=== PATIENT | female | born 1980 | race Asian ===

== ENCOUNTER 2016-09-15 07:25 | Inpatient (IN) | payer OTHER ==
[2016-09-15] MEDS ORDERED: ELECTROLYTE-148 SOLN 1,000 ML IV SCH ×4 (08:30→19:15)
[2016-09-15] MEDS ORDERED: AZITHROMYCIN 250 MG TABLET (FP) PO ONE (09:45)
[2016-09-15 11:02] LABS: BASOPHIL 0.3 % (0-2.0); MCH 28.7 pg (25.7-33.7); MEAN CELL VOLUME 87.2 fl (80-96); MEAN PLT VOLUME 7.5 fl (7.5-11.1); NEUTROPHILS 81.8 % (42.8-82.8); PLATELET COUNT 287 K/MM3 (134-434); RDW 13.6 % (11.6-15.6); WHITE BLOOD COUNT 10.1 K/mm3 (4.0-10.0)
[2016-09-15 11:17] LABS: INR 1.06 (0.82-1.09); PROTHROMBIN TIME (PATIENT) 11.7 SEC (9.98-11.88)
[2016-09-15 11:20] LABS: ACTIVATED PTT 33.4 SECONDS (26.9-34.4)
[2016-09-15 11:33] LABS: ALBUMIN 2.5 g/dl (3.4-5.0); ANION GAP 10 (8-16); BILIRUBIN,TOTAL 0.4 mg/dL (0.2-1.0); CALCIUM 8.4 mg/dL (8.5-10.1); CO2 23 mmol/L (21-32); CREATININE 0.6 mg/dL (0.55-1.02); GLUCOSE,RANDOM 91 mg/dL (74-106); SGOT/AST 29 U/L (15-37); SGPT/ALT 28 U/L (12-78); TOT PROT 6.3 g/dl (6.4-8.2)
[2016-09-15 11:34] LABS: ALK PHOS 157 U/L (45-117)
[2016-09-15] MEDS ORDERED: ELECTROLYTE-148 SOLN 500 ML IV ONE (12:30)
[2016-09-15] MEDS ORDERED: CITRIC ACID/SODIUM CITRATE 30 ML UNIT-DOSE CUP PO ONE (12:30)
[2016-09-15 13:23] VITALS: BMI 29.9
[2016-09-15 16:09] LABS: URINE APPEARANCE CLEAR; URINE BILIRUBIN NEGATIVE (NEGATIVE); URINE COLOR LTYELLOW; URINE GLUCOSE (UA) NEGATIVE (NEGATIVE); URINE KETONE 1+ (NEGATIVE); URINE NITRITE NEGATIVE (NEGATIVE); URINE UROBILINOGEN NEGATIVE E.U./dl (0.2-1.0)
[2016-09-15 16:14] LABS: URINE BLOOD 3+ (NEGATIVE); URINE LEUK ESTERASE TRACE (NEGATIVE); URINE PROTEIN 1+ (NEGATIVE)
[2016-09-15 16:52] LABS: URINE RBC 45 /hpf (0-3); URINE WBC 18 /hpf (3-5)
[2016-09-15] MEDS ORDERED: METOCLOPRAMIDE HCL INJECTION 10 MG/2 ML VIAL IVPB ONE (17:13)
--- NOTE | 2016-09-15 19:17 | HP ---
Past Medical History - Admission Chief Complaint: Vaginal bleeding History of Present Illness: 36 yo @ 38 weeks gestation with prior is Pre op for repeat C- Section. She was scheduled for 09/19/16 but due to vaginal bleeding, decision made for early section. History Source: Patient Limitations to Obtaining History: No Limitations - Past Medical History ...: 2 ...Para: 1 ...Term: 1 ...: 0 ...Spon : 0 ...Induced : 0 ...Multiple Gestation: 0 ...LMP: 12/16/15 ... Weeks Gestation by Dates: 38.6 ...EDC by Dates: 09/23/16 ...EDC by Sono: 09/26/16 - Past Surgical History Past Surgical History: Yes: Hx Myomectomy: No Hx Transabdominal Cerclage: No - Smoking History Smoking history: Never smoked Have you smoked in the past 12 months: No - Alcohol/Substance Use Hx Alcohol Use: No History of Substance Use: reports: None - Social History Usual Living Arrangement: Yes: With Spouse History of Recent Travel: No Home Medications - Allergies Allergies/Adverse Reactions: Allergies Allergy/AdvReac Type Severity Reaction Status Date / Time No Known Allergies Allergy Verified 09/15/16 07:55 - Home Medications Home Medications: Ambulatory Orders Vit/Iron Fumarate/FA [ Tablet] 1 tab PO DAILY 09/08/16 Labetalol HCl [Normodyne -] 150 mg PO BID 09/15/16 Family Disease History - Family Disease History Family History: Unremarkable Review of Systems - Review of Systems Constitutional: reports: No Symptoms Eyes: reports: No Symptoms Neck: reports: No Symptoms Cardiovascular: reports: No Symptoms Respiratory: reports: No Symptoms Gastrointestinal: reports: No Symptoms Genitourinary: reports: Vaginal Bleeding Breasts: reports: No Symptoms Reported Musculoskeletal: reports: No Symptoms Integumentary: reports: No Symptoms Neurological: reports: No Symptoms Endocrine: reports: No Symptoms Psychiatric: reports: No Symptoms Pain Intensity: 2 Physical Exam - Maternity Vital Signs: Vital Signs Temperature 98.4 F 09/15/16 18:00 Pulse Rate 86 09/15/16 18:00 Respiratory Rate 20 09/15/16 18:00 Blood Pressure 148/84 09/15/16 18:00 O2 Sat by Pulse Oximetry (%) Constitutional: Yes: Well Nourished Eyes: Yes: Conjunctiva Clear HENT: Yes: Atraumatic Neck: Yes: Supple, Trachea Midline Cardiovascular: Yes: Regular Rate and Rhythm Lungs: Clear to auscultation - Abdominal Exam/OB Number of Fetuses: Single Presentation: Vertex Contractions: Yes - Vaginal Exam/OB Speculum Exam: Yes (+ bleeding) Dilatation (cm): 1 Effacement (%): 60 Amniotic Membrane Status: Intact Presentation: Vertex/Position Station: -3 - Physical Exam Musculoskeletal: Yes: WNL Extremities: Yes: WNL Integumentary: Yes: WNL ...Motor Strength: WNL Psychiatric: Yes: Alert, Oriented - Labs Lab Results: CBC, BMP 09/15/16 10:30 09/15/16 10:30 Problem List - Problems (1) Previous section complicating , antepartum condition or complication Code(s): O34.21 - MATERNAL CARE FOR SCAR FROM PREVIOUS * DO NOT USE * Assessment/Plan Previous associated with vaginal bleeding. Pre op for repeat Consent signed Anesthesia to see patient
[2016-09-15] MEDS ORDERED: morphine SULFATE/Preservative Free 0.5 MG/ML (1cc Syringe) SPIN ONE (19:28)
[2016-09-15] MEDS ORDERED: ONDANSETRON 4 MG/2 ML VIAL IVPB PRN (20:43)
[2016-09-15] MEDS ORDERED: IBUPROFEN 600 MG TABLET (FP) PO PRN ×2 (20:43→20:54)
[2016-09-15] MEDS ORDERED: METHYLERGONOVINE MALEATE 0.2 MG/1 ML AMP IM PRN (20:54)
[2016-09-15 20:57] LABS: ARTERIAL BLD GAS O2 SATURATION 58.5 % (90-98.9); ARTERIAL BLOOD GAS BASE EXCESS -1.4 meq/l (-2-2); ARTERIAL BLOOD GAS HCO3 23.4 meq/L (22-26); ARTERIAL BLOOD GAS PO2 27.3 mmHg (80-100); LPM/O2% 21; PT. ON O2? NO
[2016-09-15 20:58] LABS: ARTERIAL BLOOD GAS pH 7.36 (7.35-7.45)
--- NOTE | 2016-09-15 20:58 | OP ---
[id number] with vaginal bleeding Operation: Repeat Low Transverse Findings: Uterus adherent to anterior abdominal wall. Baby boy in LOT position Surgeon: Love Plunkett Comb Setter: David Castano Anesthesia: Spinal Specimens Removed: Placenta Estimated Blood Loss (mls): 1,200 Operative Report Dictated: Yes
--- NOTE | 2016-09-15 20:58 | PN ---
[id number] [id number] Episiotomy/Laceration: None EBL (cc): 1,200 Delivery, Single - Stages of Labor Date of Delivery: 09/15/16 Time of Delivery: 19:48 Time Placenta Delivered: 19:49 - Condition of Broadcast Technician/Ux Manager Present: Yes Name: Grace Gaitan Infant Gender: Male Weight: 6 lb 13 oz Position: Right, OA Total Hours ROM (Hrs/Mins): 2 min - 1 Minute Total Score: 9 5 Minutes Total Score: 9 - Feeding Plan Initial Plan: Exclusive throughout hospitalization
[2016-09-15 21:13] LABS: BASOPHIL 0.6 % (0-2.0); MCH 27.4 pg (25.7-33.7); MCHC 31.5 g/dl (32.0-36.0); MEAN CELL VOLUME 87.2 fl (80-96); NEUTROPHILS 82.9 % (42.8-82.8); PLATELET COUNT 352 K/MM3 (134-434); RDW 13.4 % (11.6-15.6); WHITE BLOOD COUNT 10.2 K/mm3 (4.0-10.0)
[2016-09-15] MEDS: D5W-LR W/ 20 UNITS OXYTOCIN 1,000 ML IV SCH (22:19)
[2016-09-16] MEDS: ACETAMINOPHEN 325 MG TABLET (FP) PO PRN ×2 (06:04→12:07)
--- NOTE | 2016-09-16 08:20 | PN ---
Progress Note (short form) - Note Progress Note: POD #1 - s/p repeat under spinal anesthesia with duramorph. Pt. doing well, resting comfortably in bed. No complaints. Good pain control. No apparent anesthetic complications noted. Continue current care.
[2016-09-16 08:24] LABS: BASOPHIL 0.2 % (0-2.0); EOSINOPHIL 0.1 % (0-4.5); MCH 28.6 pg (25.7-33.7); MCHC 32.5 g/dl (32.0-36.0); MEAN CELL VOLUME 87.9 fl (80-96); MEAN PLT VOLUME 7.5 fl (7.5-11.1); NEUTROPHILS 81.7 % (42.8-82.8); PLATELET COUNT 406 K/MM3 (134-434); RDW 13.5 % (11.6-15.6); WHITE BLOOD COUNT 11.7 K/mm3 (4.0-10.0)
--- NOTE | 2016-09-16 09:16 | PN ---
[id number] evaluated. Doing well. Post Day: 1 Type of Delivery: Repeat C/S Vital Signs: Vital Signs Temperature 97.9 F 09/16/16 06:00 Pulse Rate 101 H 09/16/16 06:00 Respiratory Rate 18 09/16/16 06:00 Blood Pressure 133/89 09/16/16 06:00 O2 Sat by Pulse Oximetry (%) 98 09/15/16 23:00 Breast Exam: Yes: Soft Uterus: Yes: Fundus Firm Incision: Yes: Dressing dry and intact Abdomen/GI: Yes: Abdomen soft, Tolerating PO Lochia: Yes: Rubra Lochia, amount: Small Extremities: Yes: Calves non-tender Activity: Ambulating - Labs Labs: CBC WBC 11.7 K/mm3 (4.0-10.0) H 09/16/16 07:00 RBC 2.51 M/mm3 (3.60-5.2) L 09/16/16 07:00 Hgb 7.2 GM/dL (10.7-15.3) L 09/16/16 07:00 Hct 22.1 % (32.4-45.2) L 09/16/16 07:00 MCV 87.9 fl (80-96) 09/16/16 07:00 MCHC 32.5 g/dl (32.0-36.0) 09/16/16 07:00 RDW 13.5 % (11.6-15.6) 09/16/16 07:00 Plt Count 406 K/MM3 (134-434) 09/16/16 07:00 MPV 7.5 fl (7.5-11.1) 09/16/16 07:00 Neutrophils % 81.7 % (42.8-82.8) 09/16/16 07:00 Lymphocytes % 12.0 % (8-40) D 09/16/16 07:00 Monocytes % 6.0 % (3.8-10.2) 09/16/16 07:00 Eosinophils % 0.1 % (0-4.5) D 09/16/16 07:00 Basophils % 0.2 % (0-2.0) 09/16/16 07:00 Problem List - Problems (1) Previous section complicating , antepartum condition or complication Code(s): O34.21 - MATERNAL CARE FOR SCAR FROM PREVIOUS * DO NOT USE * (2) Status post repeat low transverse section Code(s): Z98.89 - OTHER SPECIFIED POSTPROCEDURAL STATES * DO NOT USE * Assessment/Plan Status post repeat Stable Continue Post op care
[2016-09-16] MEDS: SIMETHICONE 80 MG TAB.CHEW (FP) PO PRN (12:06)
[2016-09-16] MEDS: D5W-LR W/ 20 UNITS OXYTOCIN 1,000 ML IV SCH (13:06)
[2016-09-16 18:11] LABS: BASOPHIL 0.2 % (0-2.0); EOSINOPHIL 0.3 % (0-4.5); MCH 27.3 pg (25.7-33.7); MCHC 31.2 g/dl (32.0-36.0); MEAN CELL VOLUME 87.4 fl (80-96); MEAN PLT VOLUME 6.7 fl (7.5-11.1); NEUTROPHILS 84.3 % (42.8-82.8); PLATELET COUNT 413 K/MM3 (134-434); RDW 13.7 % (11.6-15.6); WHITE BLOOD COUNT 11.8 K/mm3 (4.0-10.0)
[2016-09-16] MEDS ORDERED: BISACODYL 10 MG SUPP.RECT RC PRN (20:54)
[2016-09-16] MEDS: oxyCODONE HCL 5 MG TABLET PO PRN (21:09)
[2016-09-17] MEDS ORDERED: LABETALOL HCL 200 MG TABLET (FP) ONE ×2 (01:07→07:56)
[2016-09-17] MEDS ORDERED: LABETALOL HCL 200 MG TABLET (FP) PO ONE (01:15)
[2016-09-17] MEDS: ACETAMINOPHEN 325 MG TABLET (FP) PO PRN (02:27)
[2016-09-17] MEDS ORDERED: MEPERIDINE HCL CARPU-JECT 50 MG/1 ML DISP.SYRIN ONE (03:34)
[2016-09-17] MEDS ORDERED: ONDANSETRON 4 MG/2 ML VIAL IVPB PRN (03:48)
[2016-09-17] MEDS: MEPERIDINE HCL CARPU-JECT 50 MG/1 ML DISP.SYRIN IM PRN ×2 (03:53→10:48)
--- NOTE | 2016-09-17 07:46 | HOSP ---
Subjective - Review of Symptoms Events since last encounter: Called to see patient as she has N/V , and bleeding from her CS wound. her dressing was changed 3 times yesterday ( last at 11:30 PM ), and it was saturated. Hb was 6.4 last evening and she received 1 unit of RBC. Saw pt : has no abd apin but feels uncomfortable and bloated. vomiting. no MCCAIN or visual changes. no CP or SOB. she reports not receiving any BP meds since delivery on . no vaginal bleeding, but bled from her wound On exam: BP 173/104. HR 80. AAOx3. CV: RRR, no MRG Lungs : bibasilar crackles . No wheezes. Ext : trace ankle edema . Abd:soft, ND, slight TTP around wound, NL BS . dressing removed, intact wound with steristrips. dressing is saturated with blood . Jiménez in . no blood from vagina Neuro : round equal pupils , EOMI, no facial droop, symmetric face, tongue at mid line. nl sensatio tolight touch , strength 5/5 inupper and lower ext prox and distally. Knee jerka nd Biceps reflexes 2+ b/l . A/P : 36 y/o lady with h/o Gestational HTN s/p C section 09/15 . Now vomiting , bleeding and hypertensive. Nausea and vomiting could be due to pain med, and anesthesia ., we should be careful in the setting of hTN ,not taking BP meds since delivery an has a h/o gestational HTN. Eclamsia is low in DDx as pt has no MCCAIN , no abd apin, no visual changes and NL Neuro exam. she has some protein in her urine on admission though. bleeding has slowed down over night . - give 150 mg of labetalol now then BID - stat CBC , transfuse if needed - decrease IVF to 75 as she has basilar crackles and will probably receive Blood - Spoke to Dr. Plunkett, regarding obtaining US and further REcs. She will resume care and have PROFESSOR OF ECONOMICS evaluate patient instead and Order US if deemed necessary . -Rest of care per PROFESSOR OF ECONOMICS Physical Examination Vital Signs: Vital Signs Temperature 97.7 F 09/17/16 06:00 Pulse Rate 89 09/17/16 06:00 Respiratory Rate 20 09/17/16 06:00 Blood Pressure 149/93 09/17/16 06:00 O2 Sat by Pulse Oximetry (%) 98 09/15/16 23:00 Labs: CBC, BMP 09/15/16 10:30
[2016-09-17] MEDS: LABETALOL HCL 200 MG TABLET (FP) PO STA ×2 (08:00→14:10)
[2016-09-17] MEDS: LABETALOL HCL 200 MG TABLET (FP) PO SCH ×3 (08:00→10:54)
[2016-09-17 08:07] LABS: BASOPHIL 0.3 % (0-2.0); EOSINOPHIL 0.2 % (0-4.5); MCH 27.9 pg (25.7-33.7); MCHC 33.6 g/dl (32.0-36.0); MEAN PLT VOLUME 7.3 fl (7.5-11.1); NEUTROPHILS 85.4 % (42.8-82.8); PLATELET COUNT 401 K/MM3 (134-434); RDW 17.5 % (11.6-15.6); WHITE BLOOD COUNT 12.6 K/mm3 (4.0-10.0)
[2016-09-17] MEDS ORDERED: LABETALOL HCL 100 MG TABLET (FP) PO SCH ×2 (10:00)
--- NOTE | 2016-09-17 10:19 | PN ---
Progress Note (SOAP) - Subjective Chief Complaint: Pt feeling better mostly gas pain small amount of blood in abdomen per tech awaiting official report pt on 2nd transfusion Called yesterday due to bleeding of incision Blood count low started transfusion dressing changed 3 times pt seen this morning at 9 am at bedside - Current Medications Current Medications: Active Medications Acetaminophen (Tylenol -) 650 mg PO Q4H PRN PRN Reason: FEVER OR PAIN Last Admin: 09/17/16 02:27 Dose: 650 mg Bisacodyl (Dulcolax Suppository -) 10 mg RC PRN PRN PRN Reason: CONSTIPATION Diphenhydramine HCl (Benadryl Injection -) 25 mg IVPUSH Q4H PRN PRN Reason: Pruritis Last Admin: 09/16/16 02:29 Dose: 25 mg Diphtheria/Tetanus/Acell Pertussis (Boostrix -) 0.5 ml IM .ONCE ONE Stop: 09/18/16 10:01 Parenteral Electrolytes (Plasma-Lyte 148 -) 1,000 mls @ 125 mls/hr IV ASDIR [facility] Last Admin: 09/15/16 13:00 Dose: 125 mls/hr Dextrose/Lactated Ringer's (Pitocin 20 Units In D5-Lr -) 1,000 mls @ 125 mls/ hr IV ASDIR [facility] Last Admin: 09/16/16 13:06 Dose: 125 mls/hr Ibuprofen (Motrin -) 600 mg PO Q4H PRN PRN Reason: PAIN Last Admin: 09/16/16 12:06 Dose: 600 mg Influenza Virus Vaccine Quadrival (Flucelvax Quadrivalent) 60 mcg IM .ONCE ONE Stop: 09/18/16 10:01 Labetalol HCl (Normodyne -) 150 mg PO BID [facility] Meperidine HCl (Demerol Injection -) 50 mg IM Q3H PRN PRN Reason: PAIN Last Admin: 09/17/16 03:53 Dose: 50 mg Methylergonovine Maleate (Methergine Injection -) 0.2 mg IM Q4H PRN PRN Reason: Excessive Bleeding (L&D) Ondansetron HCl (Zofran Injection) 4 mg IVPB Q8H PRN PRN Reason: NAUSEA AND/OR VOMITING Oxycodone HCl (Roxicodone -) 5 mg PO Q4H PRN PRN Reason: PAIN LEVEL 1-5 Last Admin: 09/16/16 21:09 Dose: 5 mg Simethicone (Mylicon -) 80 mg PO Q4H PRN PRN Reason: GAS Last Admin: 09/16/16 12:06 Dose: 80 mg - Objective Vital Signs: Vital Signs Temperature 97.7 F 09/17/16 06:00 Pulse Rate 89 09/17/16 06:00 Respiratory Rate 20 09/17/16 06:00 Blood Pressure 149/93 09/17/16 06:00 O2 Sat by Pulse Oximetry (%) 98 09/15/16 23:00 Constitutional: Yes: Well Nourished, No Distress Gastrointestinal: Yes: Abdomen, Obese, Distention ....Post : Yes: Uterus firm, Uterus non-tender Breast(s): Yes: WNL Musculoskeletal: Yes: WNL Extremities: Yes: WNL Peripheral Pulses WNL: Yes Edema: No Wound/Incision: Yes: Clean/Dry, Well Approximated Neurological: Yes: WNL, Alert, Oriented Labs Lab Results: CBC, BMP 09/17/16 06:15 09/15/16 10:30 Problem List - Problems (1) hemorrhage, delayed (> 24 hrs), delivered w cond Code(s): O72.2 - DELAYED AND SECONDARY HEMORRHAGE Assessment/Plan ass hemorrhage POD1 gas pain usg shows blood in abdomen levated BP Hx repeat CS Plan renal consult transfusion x 3 units preeclampic labs labetelol 200mg stat repeat cbc after 2nd observe blood count awiating call from radiology for official report
[2016-09-17] MEDS: SIMETHICONE 80 MG TAB.CHEW (FP) PO PRN (10:42)
[2016-09-17 11:52] LABS: URIC ACID 3.8 mg/dL (2.6-7.2)
[2016-09-17] MEDS ORDERED: NIFEdipine E.R. 30 MG TABLET (FP) PO ONE (12:15)
--- NOTE | 2016-09-17 12:59 | PN ---
Progress Note (short form) - Note Progress Note: Preeclamptic labs negative pt given stat of procardia by renal Problem List - Problems (1) hemorrhage, delayed (> 24 hrs), delivered w cond Code(s): O72.2 - DELAYED AND SECONDARY HEMORRHAGE
--- NOTE | 2016-09-17 14:45 | CONSULT ---
Consult - text type - Consultation Consultation Note: Renal Consult for Hypertension This is a 36 year old woman with PMhx of Hypertension who presented at 38 weeks gestation for repeat complicated by hemorrage and hypertension. Vital Signs Temperature 97.8 F 09/17/16 13:35 Pulse Rate 87 09/17/16 13:35 Respiratory Rate 22 09/17/16 13:35 Blood Pressure 161/105 09/17/16 13:35 O2 Sat by Pulse Oximetry (%) 98 09/15/16 23:00 Intake & Output 09/14/16 09/15/16 09/16/16 09/17/16 23:59 23:59 23:59 23:59 Intake Total 3000 4245 1525 Output Total 700 1400 800 Balance 2300 2845 725 Weight 148 lb Gen: NAD CVS: RRR Lungs: CTA Abd: soft NT/ND Ext: trace edema CBC, BMP 09/17/16 06:15 09/15/16 10:30 Current Medications Acetaminophen (Tylenol -) 650 mg PO Q4H PRN PRN Reason: FEVER OR PAIN Last Admin: 09/17/16 02:27 Dose: 650 mg Bisacodyl (Dulcolax Suppository -) 10 mg RC PRN PRN PRN Reason: CONSTIPATION Diphenhydramine HCl (Benadryl Injection -) 25 mg IVPUSH Q4H PRN PRN Reason: Pruritis Last Admin: 09/16/16 02:29 Dose: 25 mg Diphtheria/Tetanus/Acell Pertussis (Boostrix -) 0.5 ml IM .ONCE ONE Stop: 09/18/16 10:01 Parenteral Electrolytes (Plasma-Lyte 148 -) 1,000 mls @ 125 mls/hr IV ASDIR [facility] Last Admin: 09/15/16 13:00 Dose: 125 mls/hr Influenza Virus Vaccine Quadrival (Flucelvax Quadrivalent) 60 mcg IM .ONCE ONE Stop: 09/18/16 10:01 Labetalol HCl (Normodyne -) 400 mg PO Q6H PRN PRN Reason: HYPERTENSION Meperidine HCl (Demerol Injection -) 50 mg IM Q3H PRN PRN Reason: PAIN Last Admin: 09/17/16 10:48 Dose: 50 mg Methylergonovine Maleate (Methergine Injection -) 0.2 mg IM Q4H PRN PRN Reason: Excessive Bleeding (L&D) Ondansetron HCl (Zofran Injection) 4 mg IVPB Q8H PRN PRN Reason: NAUSEA AND/OR VOMITING Last Admin: 09/17/16 11:37 Dose: 4 mg Oxycodone HCl (Roxicodone -) 5 mg PO Q4H PRN PRN Reason: PAIN LEVEL 1-5 Last Admin: 09/16/16 21:09 Dose: 5 mg Simethicone (Mylicon -) 80 mg PO Q4H PRN PRN Reason: GAS Last Admin: 09/17/16 10:42 Dose: 80 mg A/P 36 year old woman with PMhx of Hypertension who presented at 38 weeks gestation for repeat complicated by hemorrage and hypertension. # Hypertension secondary to Pree-clampisa or underlying hypertension made worse by fluids/Pain Check UA, UPCR NO evidence of HELLP syndrome S/p Porocardia 30mg x 1 start Labetalol 400mg Q6h PRN For SBP > 140 or DBP > 90 avoid nsaids stop fluid infusions if not needed pain control f/u CXR Thank you will follow
[2016-09-17 16:25] LABS: URINE APPEARANCE CLEAR; URINE BILIRUBIN NEGATIVE (NEGATIVE); URINE COLOR YELLOW; URINE GLUCOSE (UA) NEGATIVE (NEGATIVE); URINE KETONE TRACE (NEGATIVE); URINE LEUK ESTERASE NEGATIVE (NEGATIVE); URINE NITRITE NEGATIVE (NEGATIVE); URINE UROBILINOGEN NEGATIVE E.U./dl (0.2-1.0)
[2016-09-17 16:30] LABS: URINE BLOOD 1+ (NEGATIVE); URINE PROTEIN 1+ (NEGATIVE)
[2016-09-17 16:32] LABS: URINE HYALINE CAST 2 /lpf; URINE MUCUS MANY; URINE RBC 41 /hpf (0-3); URINE WBC 5 /hpf (3-5)
[2016-09-17] MEDS: LABETALOL HCL 200 MG TABLET (FP) PO PRN (17:01)
[2016-09-17 19:49] LABS: CALCIUM 8.2 mg/dL (8.5-10.1); CREATININE 0.7 mg/dL (0.55-1.02)
[2016-09-18] MEDS: SIMETHICONE 80 MG TAB.CHEW (FP) PO PRN (08:17)
[2016-09-18] MEDS: LABETALOL HCL 200 MG TABLET (FP) PO PRN (08:17)
[2016-09-18] MEDS: ACETAMINOPHEN 325 MG TABLET (FP) PO PRN (08:18)
[2016-09-18] MEDS: oxyCODONE HCL 5 MG TABLET PO PRN (08:19)
[2016-09-18 08:57] LABS: MCH 27.6 pg (25.7-33.7); MCHC 33.3 g/dl (32.0-36.0); MEAN CELL VOLUME 82.9 fl (80-96); MEAN PLT VOLUME 6.8 fl (7.5-11.1); PLATELET COUNT 509 K/MM3 (134-434); RDW 16.9 % (11.6-15.6); WHITE BLOOD COUNT 11.7 K/mm3 (4.0-10.0)
[2016-09-18 09:56] LABS: METAMYELOCYTE 1 % (0-2)
--- NOTE | 2016-09-18 09:58 | PN ---
Progress Note, Physician - Current Medication List Current Medications: Active Medications Acetaminophen (Tylenol -) 650 mg PO Q4H PRN PRN Reason: FEVER OR PAIN Last Admin: 09/18/16 08:18 Dose: 650 mg Bisacodyl (Dulcolax Suppository -) 10 mg RC PRN PRN PRN Reason: CONSTIPATION Diphenhydramine HCl (Benadryl Injection -) 25 mg IVPUSH Q4H PRN PRN Reason: Pruritis Last Admin: 09/16/16 02:29 Dose: 25 mg Diphtheria/Tetanus/Acell Pertussis (Boostrix -) 0.5 ml IM .ONCE ONE Stop: 09/18/16 10:01 Parenteral Electrolytes (Plasma-Lyte 148 -) 1,000 mls @ 125 mls/hr IV ASDIR [facility] Last Admin: 09/15/16 13:00 Dose: 125 mls/hr Influenza Virus Vaccine Quadrival (Flucelvax Quadrivalent) 60 mcg IM .ONCE ONE Stop: 09/18/16 10:01 Labetalol HCl (Normodyne -) 400 mg PO Q6H PRN PRN Reason: HYPERTENSION Last Admin: 09/18/16 08:17 Dose: 400 mg Meperidine HCl (Demerol Injection -) 50 mg IM Q3H PRN PRN Reason: PAIN Last Admin: 09/17/16 10:48 Dose: 50 mg Methylergonovine Maleate (Methergine Injection -) 0.2 mg IM Q4H PRN PRN Reason: Excessive Bleeding (L&D) Nifedipine (Procardia Xl -) 30 mg PO DAILY [facility] Ondansetron HCl (Zofran Injection) 4 mg IVPB Q8H PRN PRN Reason: NAUSEA AND/OR VOMITING Last Admin: 09/17/16 11:37 Dose: 4 mg Oxycodone HCl (Roxicodone -) 5 mg PO Q4H PRN PRN Reason: PAIN LEVEL 1-5 Last Admin: 09/18/16 08:19 Dose: 5 mg Simethicone (Mylicon -) 80 mg PO Q4H PRN PRN Reason: GAS Last Admin: 09/18/16 08:17 Dose: 80 mg - Objective Vital Signs: Vital Signs Temperature 97.8 F 09/18/16 06:00 Pulse Rate 90 09/18/16 06:00 Respiratory Rate 20 09/18/16 06:00 Blood Pressure 136/90 09/18/16 06:00 O2 Sat by Pulse Oximetry (%) 98 09/15/16 23:00 Labs: CBC, BMP 09/18/16 08:00 09/17/16 19:10 INR, PTT INR 1.06 (0.82-1.09) 09/15/16 10:30
[2016-09-18] MEDS ORDERED: INFLUENZA VACCINE 45 MCG/0.5 ML (MDV 16-17) IM ONE (10:00)
[2016-09-18] MEDS ORDERED: DIPHTH,PERTUSS(ACELL),TET 0.5 ML DISP.SYRIN IM ONE (10:00)
[2016-09-18] MEDS ORDERED: VACCINE 60 MCG/0.5 ML (P/F DISP.SYRIN 16-17) IM ONE (10:00)
--- NOTE | 2016-09-18 10:46 | PN ---
Progress Note, Physician Chief Complaint: s/p section condition is stable s/p post op bleeding followed by transfusion of prbc she now offers no complaints - Current Medication List Current Medications: Active Medications Acetaminophen (Tylenol -) 650 mg PO Q4H PRN PRN Reason: FEVER OR PAIN Last Admin: 09/18/16 08:18 Dose: 650 mg Bisacodyl (Dulcolax Suppository -) 10 mg RC PRN PRN PRN Reason: CONSTIPATION Diphenhydramine HCl (Benadryl Injection -) 25 mg IVPUSH Q4H PRN PRN Reason: Pruritis Last Admin: 09/16/16 02:29 Dose: 25 mg Parenteral Electrolytes (Plasma-Lyte 148 -) 1,000 mls @ 125 mls/hr IV ASDIR [facility] Last Admin: 09/15/16 13:00 Dose: 125 mls/hr Labetalol HCl (Normodyne -) 400 mg PO Q6H PRN PRN Reason: HYPERTENSION Last Admin: 09/18/16 08:17 Dose: 400 mg Meperidine HCl (Demerol Injection -) 50 mg IM Q3H PRN PRN Reason: PAIN Last Admin: 09/17/16 10:48 Dose: 50 mg Methylergonovine Maleate (Methergine Injection -) 0.2 mg IM Q4H PRN PRN Reason: Excessive Bleeding (L&D) Nifedipine (Procardia Xl -) 30 mg PO DAILY [facility] Ondansetron HCl (Zofran Injection) 4 mg IVPB Q8H PRN PRN Reason: NAUSEA AND/OR VOMITING Last Admin: 09/17/16 11:37 Dose: 4 mg Oxycodone HCl (Roxicodone -) 5 mg PO Q4H PRN PRN Reason: PAIN LEVEL 1-5 Last Admin: 09/18/16 08:19 Dose: 5 mg Simethicone (Mylicon -) 80 mg PO Q4H PRN PRN Reason: GAS Last Admin: 09/18/16 08:17 Dose: 80 mg - Objective Vital Signs: Vital Signs Temperature 97.8 F 09/18/16 06:00 Pulse Rate 90 09/18/16 06:00 Respiratory Rate 20 09/18/16 06:00 Blood Pressure 136/90 09/18/16 06:00 O2 Sat by Pulse Oximetry (%) 98 09/15/16 23:00 Constitutional: Yes: Well Nourished, No Distress, Moderate Distress Eyes: Yes: WNL HENT: Yes: WNL, Atraumatic, Pharyngeal Erythema Neck: Yes: WNL, Supple Cardiovascular: Yes: WNL, Regular Rate and Rhythm Respiratory: Yes: WNL, Regular Gastrointestinal: Yes: WNL, Normal Bowel Sounds ...Rectal Exam: Yes: WNL Genitourinary: Yes: WNL Breast(s): Yes: WNL Musculoskeletal: Yes: WNL Extremities: Yes: WNL Edema: No Peripheral Pulses WNL: Yes Wound/Incision: Yes: Clean/Dry, Well Approximated Neurological: Yes: Alert, Oriented ...Motor Strength: WNL Psychiatric: Yes: WNL, Alert Labs: CBC, BMP 09/18/16 08:00 09/17/16 19:10 INR, PTT INR 1.06 (0.82-1.09) 09/15/16 10:30 Assessment/Plan condition stable s/p delivery elevated blood pressure currently stable h/o HTN PLAN TO DISCHARGE HOME TOMORROW IF BP IS STABLE.
[2016-09-18] MEDS: NIFEdipine E.R. 30 MG TABLET (FP) PO SCH (11:38)
[2016-09-19] MEDS: LABETALOL HCL 200 MG TABLET (FP) PO PRN (05:55)
--- NOTE | 2016-09-19 06:35 | PN ---
Progress Note (SOAP) - Subjective Chief Complaint: Pt doing well - Current Medications Current Medications: Active Medications Acetaminophen (Tylenol -) 650 mg PO Q4H PRN PRN Reason: FEVER OR PAIN Last Admin: 09/18/16 08:18 Dose: 650 mg Bisacodyl (Dulcolax Suppository -) 10 mg RC PRN PRN PRN Reason: CONSTIPATION Diphenhydramine HCl (Benadryl Injection -) 25 mg IVPUSH Q4H PRN PRN Reason: Pruritis Last Admin: 09/16/16 02:29 Dose: 25 mg Parenteral Electrolytes (Plasma-Lyte 148 -) 1,000 mls @ 125 mls/hr IV ASDIR [facility] Last Admin: 09/15/16 13:00 Dose: 125 mls/hr Labetalol HCl (Normodyne -) 400 mg PO Q6H PRN PRN Reason: HYPERTENSION Last Admin: 09/19/16 05:55 Dose: 400 mg Meperidine HCl (Demerol Injection -) 50 mg IM Q3H PRN PRN Reason: PAIN Last Admin: 09/17/16 10:48 Dose: 50 mg Methylergonovine Maleate (Methergine Injection -) 0.2 mg IM Q4H PRN PRN Reason: Excessive Bleeding (L&D) Nifedipine (Procardia Xl -) 30 mg PO DAILY [facility] Last Admin: 09/18/16 11:38 Dose: 30 mg Ondansetron HCl (Zofran Injection) 4 mg IVPB Q8H PRN PRN Reason: NAUSEA AND/OR VOMITING Last Admin: 09/17/16 11:37 Dose: 4 mg Simethicone (Mylicon -) 80 mg PO Q4H PRN PRN Reason: GAS Last Admin: 09/18/16 08:17 Dose: 80 mg - Objective Vital Signs: Vital Signs Temperature 97.7 F 09/18/16 22:00 Pulse Rate 91 H 09/19/16 06:00 Respiratory Rate 18 09/19/16 06:00 Blood Pressure 142/90 09/19/16 06:00 O2 Sat by Pulse Oximetry (%) 98 09/15/16 23:00 Constitutional: Yes: Well Nourished, No Distress Cardiovascular: Yes: WNL, Regular Rate and Rhythm Respiratory: Yes: WNL, Regular, CTA Bilaterally Gastrointestinal: Yes: WNL, Normal Bowel Sounds, Soft ....Post : Yes: Uterus firm, Uterus non-tender Breast(s): Yes: WNL Musculoskeletal: Yes: WNL Extremities: Yes: WNL Neurological: Yes: WNL, Alert, Oriented Labs Lab Results: CBC, BMP 09/18/16 08:00 09/17/16 19:10 Problem List - Problems (1) hemorrhage, delayed (> 24 hrs), delivered w cond Code(s): O72.2 - DELAYED AND SECONDARY HEMORRHAGE Assessment/Plan ass hemorrhage POD3 elevated BP renal consult appreciated Hx repeat CS Plan Continue present management
--- NOTE | 2016-09-19 09:12 | PN ---
Progress Note (short form) - Note Progress Note: Renal Follow up for Postpatum Hypertension Pt seen and examined at the bedside no acute complaints no sob, chest pain, dizziness, lightheadedness Vital Signs Temperature 97.7 F 09/18/16 22:00 Pulse Rate 91 H 09/19/16 06:00 Respiratory Rate 18 09/19/16 06:00 Blood Pressure 142/90 09/19/16 06:00 O2 Sat by Pulse Oximetry (%) 98 09/15/16 23:00 Intake & Output 09/16/16 09/17/16 09/18/16 09/19/16 23:59 23:59 23:59 23:59 Intake Total 4245 1525 940 Output Total 1400 1400 550 Balance 2845 125 390 Gen: NAD CVS: RRR Lungs: CTA Abd: soft NT/ND Ext: trace edema CBC, BMP 09/18/16 08:00 09/17/16 19:10 Current Medications Acetaminophen (Tylenol -) 650 mg PO Q4H PRN PRN Reason: FEVER OR PAIN Last Admin: 09/18/16 08:18 Dose: 650 mg Bisacodyl (Dulcolax Suppository -) 10 mg RC PRN PRN PRN Reason: CONSTIPATION Diphenhydramine HCl (Benadryl Injection -) 25 mg IVPUSH Q4H PRN PRN Reason: Pruritis Last Admin: 09/16/16 02:29 Dose: 25 mg Parenteral Electrolytes (Plasma-Lyte 148 -) 1,000 mls @ 125 mls/hr IV ASDIR [facility] Last Admin: 09/15/16 13:00 Dose: 125 mls/hr Labetalol HCl (Normodyne -) 400 mg PO Q6H PRN PRN Reason: HYPERTENSION Last Admin: 09/19/16 05:55 Dose: 400 mg Meperidine HCl (Demerol Injection -) 50 mg IM Q3H PRN PRN Reason: PAIN Last Admin: 09/17/16 10:48 Dose: 50 mg Methylergonovine Maleate (Methergine Injection -) 0.2 mg IM Q4H PRN PRN Reason: Excessive Bleeding (L&D) Nifedipine (Procardia Xl -) 30 mg PO DAILY [facility] Last Admin: 09/18/16 11:38 Dose: 30 mg Ondansetron HCl (Zofran Injection) 4 mg IVPB Q8H PRN PRN Reason: NAUSEA AND/OR VOMITING Last Admin: 09/17/16 11:37 Dose: 4 mg Simethicone (Mylicon -) 80 mg PO Q4H PRN PRN Reason: GAS Last Admin: 09/18/16 08:17 Dose: 80 mg A/P 36 year old woman with PMhx of Hypertension who presented at 38 weeks gestation for repeat complicated by hemorrage and hypertension. # Hypertension secondary to Pree-clampisa or underlying hypertension made worse by fluids/Pain Urine studies show + proteinuria so pt does have pre-eclampsia BP controlled on Labetalol and Procardia Will attempt to control BP on [place] alone to get 10am procardia but if bp elevated in the afternoon will redose procardia again to bring dose to 60mg possible discharge this evening if bp stable will need outpatient follow up in the office. Thank you will follow
[2016-09-19] MEDS: NIFEdipine E.R. 30 MG TABLET (FP) PO SCH (09:53)
[2016-09-19 15:27] VITALS: BP 137/87; PULSE 97; TEMP 98.2
--- NOTE | 2016-09-20 13:44 | PATH ---
Surgical Pathology Report Patient Name: NO LIMON Med. Rec. #: [id number] /Age/Gender: 1980 (Age: 36) / F Account: [id number] Location: [facility] OBS/PIANO PLAYER Taken: 09/15/2016 Received: 09/16/2016 Reported: 09/20/2016 Physicians: Love Plunkett M.D. Specimen(s) Received PLACENTA Clinical History , 38 weeks and 3 days, history of previous c/section 2010 Repeat c/section Final Diagnosis PLACENTA, DELIVERY: FOCALLY DISRUPTED THIRD TRIMESTER PLACENTA WITH MODERATE PREVILLOUS, PERIVILLOUS, AND PRECHORIONIC FIBRIN DEPOSITION, THREE VESSEL UMBILICAL CORD, AND PLACENTAL MEMBRANES WITH MILD MECONIUM HISTIOCYTOSIS. Electronically Signed John Antunez M.D. Gross Description The specimen is received fresh, labeled "placenta" and is a 397 gram, 18.5 x 14.0 x 2.7 cm placenta with attached membranes and umbilical cord. The attached membranes are petit and with focal opacities and insert marginally. The umbilical cord measures 19 cm in length and averages 1.1 cm in diameter. The cord inserts eccentrically, 2 cm to the nearest margin. No true knots or strictures are identified. Cut surface of the umbilical cord reveals 3 vessels. The surface is madera-blue with fibrin deposition and appropriate caliber vessels. The maternal surface is red-brown with focal defects. Sectioning reveals red-brown, spongy parenchyma. No focal lesions are identified. Gut Snatcher sections are submitted in three cassettes as follows: 1- membrane rolls and umbilical cord; 2-3- full thickness sections of placenta. /09/19/2016 [facility]09/19/2016
--- NOTE | 2016-10-03 11:18 | OP ---
DATE OF OPERATION: 09/15/2016 PREOPERATIVE DIAGNOSIS: Previous section with vaginal bleeding. POSTOPERATIVE DIAGNOSIS: Previous section with vaginal bleeding. PROCEDURE: Repeat low transverse section. SURGEON: Love Plunkett MD [employer] PROFESSOR: WILLIAN Rojo ANESTHESIA: Spinal. COMPLICATIONS: None. ESTIMATED BLOOD LOSS: 1200 mL. PATHOLOGY: Placenta. DESCRIPTION OF PROCEDURE: The patient was taken to the operating room where spinal anesthesia was administered. The patient was then prepped and draped in appropriate sterile fashion. A Pfannenstiel skin incision was made and carried down to the underlying layer of fascia. The fascia was incised in the midline and extended laterally. The superior aspect of the fascial incision was then grasped with a Myra clamp, elevated, and the rectus muscles dissected off bluntly. Attention was then turned to the inferior aspect of the fascial incision, which in a similar fashion was then grasped with a Myra clamp, elevated, and the rectus muscle dissected off bluntly. The rectus muscle was then in the midline. No peritoneum observed. After incision of the rectus muscle, we entered the abdomen. There were a lot of adhesions noted. The anterior abdominal wall was adhered to the anterior wall of the uterus. Adhesiolysis was performed then a bladder blade was inserted to put at the bladder incision. Using a 15 blade, incision was made over the uterus over the lower uterine segment due to multiple adhesions. We were able to enter the uterine cavity, and the head was removed manually. Nose and mouth were suctioned and the cord clamped and cut. The infant was handed to the waiting grain distributor. The placenta was then removed manually. The uterus was exteriorized and cleared of all clots and debris. The uterine incision was repaired using 0 Biosyn in a running, locked fashion. The 2nd layer of the same suture was used as a means to provide excellent hemostasis. The pelvis was then completely irrigated. The uterus was returned to the abdomen. The fascia was reapproximated using 0 Vicryl in a running fashion. The skin was closed in a subcuticular fashion using 3-0 Vicryl. The patient tolerated the procedure well. The patient was then taken to PACU in stable condition. Sincere WHITEHEAD/[id number]
--- NOTE | 2016-11-15 20:58 | DS ---
Physical Exam-RESIDENCY PROGRAM COORDINATOR Vital Signs: Vital Signs Temperature 98.2 F 09/19/16 14:00 Pulse Rate 97 H 09/19/16 14:00 Respiratory Rate 20 09/19/16 14:00 Blood Pressure 137/87 09/19/16 14:00 O2 Sat by Pulse Oximetry (%) 98 09/15/16 23:00 Constitutional: Yes: Well Nourished Eyes: Yes: Conjunctiva Clear HENT: Yes: Atraumatic Neck: Yes: Supple, Trachea Midline Cardiovascular: Yes: Regular Rate and Rhythm Respiratory: Yes: Regular, CTA Bilaterally Gastrointestinal: Yes: Normal Bowel Sounds Renal/: Yes: WNL Pelvis: Yes: WNL External Genitalia: Yes: Normal Vaginal Exam: Yes: Normal Cervix: Yes: Normal Uterus: Yes: Normal ....Post : Yes: Uterus firm Breast(s): Yes: WNL Musculoskeletal: Yes: WNL Extremities: Yes: WNL Wound/Incision: Yes: Well Approximated Neurological: Yes: Alert, Oriented ...Motor Strength: WNL Psychiatric: Yes: Alert, Oriented Labs: CBC, BMP 09/18/16 08:00 09/17/16 19:10 Delivery - Delivery Section: Repeat Type of Anesthesia: Spinal Episiotomy/Laceration: None EBL (cc): 1,200 Delivery, Single - Stages of Labor Date of Delivery: 09/15/16 Time of Delivery: 19:48 Time Placenta Delivered: 19:49 - Condition of Helicopter Officer/Paste Maker Present: Yes Name: Grace Gaitan Gender: Male Weight: 6 lb 13 oz Position: Right, OA Total Hours ROM (Hrs/Mins): 2 min - 1 Minute Total Score: 9 5 Minutes Total Score: 9 - Feeding Plan Initial Plan: Exclusive throughout hospitalization Discharge Summary Reason For Visit: LABOR ASSESS Previous with vaginal bleeding Procedures: Principal: Repeat Low Transverse Hospital Course: During period patient required blood transfusion and medication to control blood pressure. Nephrology consult obtained. Condition: Good - Instructions Diet, Activity, Other Instructions: follow up with dr rivero in one week. [address] [place], [place] [id number] [phone] Referrals: Love Plunkett MD [Staff Physician] - Glenn Herrera MD [Staff Physician] - Disposition: HOME - Home Medications Comprehensive Discharge Medication List: Ambulatory Orders Vit/Iron Fumarate/FA [ Tablet] 1 tab PO DAILY 09/08/16 Nifedipine ER [Procardia XL -] 30 mg PO DAILY #0 tab.er.24 09/19/16 Oxycodone HCl/Acetaminophen [Percocet 5-325 mg Tablet -] 1 tab PO Q4H #20 tablet MDD 6 09/19/16
== END 2016-09-19 17:53 | disposition home or self-care (01) | DRG 765 ==
LOC: JDEL 07:25 → JLDR 12:30 → J3W 22:40
PROVIDERS: ADMIT Obstetrics & Gynecology; ATTEND Obstetrics & Gynecology
PROC: 10D00Z1 Extraction of Products of Conception, Low, Open Approach (ICD-10-PCS; principal; 2016-09-15)
PROC: 30233N1 Transfusion of Nonautologous Red Blood Cells into Peripheral Vein, Percutaneous Approach (ICD-10-PCS; 2016-09-16)
DX: O34.211 Maternal care for low transverse scar from previous cesarean delivery (principal); O72.1 Other immediate postpartum hemorrhage; O09.523 Supervision of elderly multigravida, third trimester; O11.5 Pre-existing hypertension with pre-eclampsia, complicating the puerperium; Z3A.38 38 weeks gestation of pregnancy; Z37.0 Single live birth
CPT/HCPCS: 36415; 36430; 36600; 59025; 71010-TC; 76700-TC; 80048; 80053; 81003; 81015; 82570; 82803; 82977; 83010; 84156; 84450; 84460; 84550; 85025; 85044; 85610; 85730; 86593; 86850; 86900; 86901; 86922; 88307-TC; 90661; 90715; 94010; G0008; P9058